=== PATIENT | female | born 1995 | race American Indian/Alaskan Native ===

== ENCOUNTER 2016-06-06 20:01 | Emergency (ER) | payer SELFPAY ==
[2016-06-06 22:26] VITALS: BP 138/82
[2016-06-06] MEDS ORDERED: MOTRIN PO ONE (22:40)
--- NOTE | 2016-06-06 22:41 | Emergency Department Report ---
ED Lower Extremity HPI - General Chief Complaint: Extremity Injury, Lower Stated Complaint: ANKLE INJURY Time Seen by Provider: 06/06/16 22:28 Source: patient Mode of arrival: Ambulatory Limitations: No Limitations - History of Present Illness Initial Comments: 20-year-old female accompanied with her mother presents to emergency room with right ankle injury. Patient's status and twisted her ankle 2 days ago since then however been bothering her. As any difficulty walking. Complaint: ankle injury -: Gradual, days(s) (two) Injury: Ankle: Right Type of Injury: inversion Place: home Severity: mild Severity scale (0 -10): 2 Improves With: cold therapy Worsens With: weight bearing Context: walking Associated Symptoms: swelling Treatments Prior to Arrival: cold therapy - Related Data Previous Rx's Medication Instructions Recorded Last Taken Type Diclofenac Sodium 75 mg PO BID #20 tablet. 06/06/16 Unknown Rx Allergies Allergy/AdvReac Type Severity Reaction Status Date / Time No Known Allergies Allergy Unverified 06/06/16 21:13 ED Review of Systems ROS: Stated complaint: ANKLE INJURY Other details as noted in HPI Comment: All other systems reviewed and negative Constitutional: denies: chills, fever Eyes: denies: eye pain, eye discharge, vision change ENT: denies: ear pain, throat pain Respiratory: denies: cough, shortness of breath, wheezing Cardiovascular: denies: chest pain, palpitations Endocrine: no symptoms reported Gastrointestinal: denies: abdominal pain, nausea, diarrhea Genitourinary: denies: urgency, dysuria, discharge Musculoskeletal: as per HPI, other. denies: back pain, joint swelling, arthralgia Skin: denies: rash, lesions Neurological: denies: headache, weakness, paresthesias Psychiatric: denies: anxiety, depression Hematological/Lymphatic: denies: easy bleeding, easy bruising ED Past Medical Hx - Past Medical History Previous Medical History?: Yes Hx Asthma: Yes - Surgical History Past Surgical History?: No - Family History Family history: no significant - Social History Smoking Status: Never Smoker Substance Use Type: Non Opiate Pain - Medications Home Medications: Home Medications Medication Instructions Recorded Confirmed Last Taken Type Diclofenac Sodium 75 mg PO BID #20 tablet. 06/06/16 Unknown Rx ED Physical Exam - General Limitations: No Limitations General appearance: alert, in no apparent distress - Head Head exam: Present: atraumatic, normocephalic - Eye Eye exam: Present: normal appearance - ENT ENT exam: Present: normal exam, mucous membranes moist - Neck Neck exam: Present: normal inspection - Respiratory Respiratory exam: Present: normal lung sounds bilaterally. Absent: respiratory distress - Cardiovascular Cardiovascular Exam: Present: regular rate, normal rhythm. Absent: systolic murmur, diastolic murmur, rubs, gallop - GI/Abdominal GI/Abdominal exam: Present: soft, normal bowel sounds - Extremities Exam Extremities exam: Present: normal inspection - Expanded Lower Extremity Exam Right Hip exam: Present: normal inspection, full ROM Upper Leg exam: Present: normal inspection, full ROM. Absent: tenderness Knee exam: Present: normal inspection, full ROM. Absent: tenderness Lower Leg exam: Present: normal inspection, full ROM. Absent: tenderness Ankle exam: Present: tenderness (lateral ankle), swelling (right lateral aspect) Foot/Toe exam: Present: normal inspection, full ROM Neuro vascular tendon exam: Present: no vascular compromise Gait: Positive: antalgic - Back Exam Back exam: Present: normal inspection - Neurological Exam Neurological exam: Present: alert, oriented X3 - Psychiatric Psychiatric exam: Present: normal affect, normal mood - Skin Skin exam: Present: warm, dry, intact, normal color. Absent: rash ED Course Vital Signs 06/06/16 06/06/16 21:13 22:24 Temperature 97.3 F L 98.4 F Pulse Rate 71 82 Respiratory 18 12 Rate Blood Pressure 128/86 Blood Pressure 128/86 138/82 [Right] O2 Sat by Pulse 99 99 Oximetry - Orthopedic Splinting/Casting Injury #1 Side: right Lower Extremity Injury Location: ankle Lower Extremity Immobilizer: AirCast Other Orthopedic Equipment: crutches ED Lower Extremity MDM - Radiology Data Radiology results: report reviewed, image reviewed (no acute fracture) Critical care attestation.: If time is entered above; I have spent that time in minutes in the direct care of this critically ill patient, excluding procedure time. ED Disposition Clinical Impression: Right ankle sprain Qualifiers: Encounter type: initial encounter Involved ligament of ankle: deltoid ligament Qualified Code(s): S93.421A - Sprain of deltoid ligament of right ankle, initial encounter Disposition: DISCHARGED TO HOME OR SELFCARE Is pt being admited?: No Does the pt Need Aspirin: No Condition: Good Instructions: Ankle Sprain (ED) Prescriptions: Diclofenac Sodium 75 mg PO BID #20 tablet.dr Referrals: PRIMARY CAREMD [Primary Care Provider] - 3-5 Days NATASHA VILLAREAL MD [Staff Physician] - 3-5 Days
--- NOTE | 2016-06-07 10:16 | XRay Report ---
RIGHT ANKLE THREE VIEWS: 06/06/16 20:01:00 CLINICAL: Right ankle injury. Pain. FINDINGS: The ankle mortise is intact. No fracture or dislocation. Mild medial and lateral soft tissue swelling . No soft tissue air or foreign body. IMPRESSION: Mild soft tissue injury and otherwise normal.
== END 2016-06-06 23:50 | disposition home or self-care (01) ==
LOC: ED 20:01
DX: S93.421A Sprain of deltoid ligament of right ankle, initial encounter (principal); J45.909 Unspecified asthma, uncomplicated; X58.XXXA Exposure to other specified factors, initial encounter; Y93.89 Activity, other specified; Y99.8 Other external cause status; Y92.009 Unspecified place in unspecified non-institutional (private) residence as the place of occurrence of the external cause

== ENCOUNTER 2017-08-11 11:56 | Emergency (ER) | payer OTHER ==
[2017-08-11 12:05] VITALS: BP 131/73
[2017-08-11 12:38] LABS: HCG Qualitative,Urine Negative (Negative)
[2017-08-11] MEDS ORDERED: BOOSTRIX IM ONE (14:39)
[2017-08-11] MEDS ORDERED: MOTRIN PO ONE (14:40)
--- NOTE | 2017-08-11 14:42 | Emergency Department Report ---
Upper Extremity - HPI Chief Complaint: Extremity Injury, Upper Stated Complaint: RIGHT HAND INJURY Time Seen by Provider: 08/11/17 14:36 Upper Extremity: Right Hand Occurred When: 1 Day Mechanism: Hit with Object, Crush Severity: moderate Symptoms: Yes Pain with Movement, Yes Laceration or Abrasion, No Deformity, No Limited Range of Movement, No Numbness, No Weakness, No Swelling, No Bruising/ Ecchymosis Other History: 21-year-old female past medical history none presents with complaint of right hand pain. As per patient she was at work yesterday and injured her hand on a conveyor belt type instrument. Large abrasions to the lateral aspect of right hand. Patient states it hurts to make a closed fist. Some swelling of the side of her hand. No other injury sustained. ED Review of Systems ROS: Stated complaint: RIGHT HAND INJURY Other details as noted in HPI Constitutional: denies: chills, fever Eyes: denies: eye pain, eye discharge, vision change ENT: denies: ear pain, throat pain Respiratory: denies: cough, shortness of breath, wheezing Cardiovascular: denies: chest pain, palpitations Endocrine: no symptoms reported Gastrointestinal: denies: abdominal pain, nausea, diarrhea Genitourinary: denies: urgency, dysuria, discharge Musculoskeletal: as per HPI. denies: back pain, joint swelling, arthralgia Skin: denies: rash, lesions Neurological: denies: headache, weakness, paresthesias Psychiatric: denies: anxiety, depression Hematological/Lymphatic: denies: easy bleeding, easy bruising ED Past Medical Hx - Past Medical History Hx Asthma: Yes - Social History Smoking Status: Current Every Day Smoker Substance Use Type: Alcohol - Medications Home Medications: Home Medications Medication Instructions Recorded Confirmed Last Taken Type Diclofenac Sodium 75 mg PO BID #20 tablet. 06/06/16 Unknown Rx Ibuprofen [Motrin] 800 mg PO Q8HR PRN #25 tablet 08/11/17 Unknown Rx Upper Extremity Exam - Exam General: Vital signs noted. No distress. Alert and acting appropriately. Head and Torso: No HEENT Abnormality, No Neck Tenderness, No Chest/Lungs Abnormality, No Abdominal Tenderness, No Back Tenderness Shoulder Exam: Yes Normal Range of Motion in Shoulder, No Shoulder Tenderness, No Clavicle Tenderness, No Shoulder Deformity, No AC Joint Tenderness Arm Exam: No Arm/Humerus Tenderness, No Arm Deformity Elbow: No Elbow Tenderness, No Normal Range of Motion in Elbow, No Elbow Deformity Forearm: No Forearm Tenderness, No Forearm Deformity, No Pain with Pronation, No Pain with Supination Wrist: Yes Normal ROM in Wrist (flexion+ extension intact), No Wrist Tenderness , No Wrist Deformity, No Snuffbox Tenderness (there is no snuffbox tenderness on exam), No Pain with Axial Thumb Compression Hand: Yes Hand Tenderness, Yes Normal ROM in Digit(s), No Hand Deformity, No Digit Tenderness, No Digit(s) Deformity, No Tendon Dysfunction CMS Exam: Yes Normal Distal Pulses (distal capillary refill and pulses strong to palpation distal sensation intact), Yes Normal Capillary Refill, Yes Normal Distal Sensation, No Broken Skin Hand L/R Back: 1 - Pain on examination here, 2 cm abrasion ED Course Vital Signs 08/11/17 12:01 Temperature 98.5 F Pulse Rate 70 Respiratory 18 Rate Blood Pressure 131/73 O2 Sat by Pulse 100 Oximetry ED Medical Decision Making - Medical Decision Making A/P: Hand abrasion, hand contusion 1-Antonio wrap, Motrin, RICe 2-neurovascular exam right upper extremity normal 3-follow-up with orthopedics and primary care Critical care attestation.: If time is entered above; I have spent that time in minutes in the direct care of this critically ill patient, excluding procedure time. ED Disposition Clinical Impression: Abrasion Hand sprain Qualifiers: Encounter type: initial encounter Laterality: right Qualified Code(s): S63.91XA - Sprain of unspecified part of right wrist and hand, initial encounter Disposition: TO HOME OR SELFCARE Is pt being admited?: No Does the pt Need Aspirin: No Condition: Stable Instructions: Hand Sprain (ED), RICE Therapy (ED) Prescriptions: Ibuprofen [Motrin] 800 mg PO Q8HR PRN #25 tablet PRN Reason: Pain , Severe (7-10) Referrals: NATASHA VILLAREAL MD [Staff Physician] - 3-5 Days Forms: Work/School Release Form(ED) Time of Disposition: 16:03
--- NOTE | 2017-08-11 15:15 | XRay Report ---
RIGHT HAND, 3 views: History: Lateral hand pain. There is normal bone mineralization. The fifth digit is in flexion on all views. There is no evidence for osseous injury or erosive joint pathology. The soft tissues are unremarkable. IMPRESSION: No bony abnormality is detected.
== END 2017-08-11 16:10 | disposition home or self-care (01) ==
LOC: ED 11:56
DX: S63.91XA Sprain of unspecified part of right wrist and hand, initial encounter (principal); J45.909 Unspecified asthma, uncomplicated; F17.200 Nicotine dependence, unspecified, uncomplicated; W22.8XXA Striking against or struck by other objects, initial encounter; Y93.89 Activity, other specified; Y92.89 Other specified places as the place of occurrence of the external cause; Y99.8 Other external cause status
CPT/HCPCS: 81025; 90471; 90715; 99284